=== PATIENT | male | born 1995 | race Caucasian/White ===

== ENCOUNTER 2020-10-26 21:12 | Emergency (ER) | payer OTHER ==
[2020-10-26 21:16] VITALS: BP 138/87; PULSE 111; TEMP 98.7; BMI 28.7
== END 2020-10-26 22:27 | disposition home or self-care (01) ==
LOC: JERFT 21:12
DX: S46.911A Strain of unspecified muscle, fascia and tendon at shoulder and upper arm level, right arm, initial encounter (principal); S50.01XA Contusion of right elbow, initial encounter; S46.912A Strain of unspecified muscle, fascia and tendon at shoulder and upper arm level, left arm, initial encounter
CPT/HCPCS: 73030-TC-RT-FY; 73070-TC-RT-FY; 99284-25

== ENCOUNTER 2022-08-14 22:53 | Emergency (ER) | payer OTHER ==
[~2022-08-14 22:53] MED LIST: LIDOCAINE PATCH REMOVAL MC SCH
[2022-08-14 22:57] VITALS: BP 165/88; PULSE 88; RESP 18; TEMP 97; BMI 30.1
[2022-08-14] MEDS ORDERED: LIDOCAINE 5% TOPICAL PATCH TP ONE (23:21)
[2022-08-14] MEDS ORDERED: ACETAMINOPHEN 500 MG TABLET (FP) PO ONE (23:21)
[2022-08-14] MEDS ORDERED: IBUPROFEN 600 MG TABLET (FP) PO ONE ×2 (23:21→23:49)
[2022-08-14] MEDS ORDERED: LIDOCAINE 5% TOPICAL PATCH ONE (23:48)
[2022-08-14] MEDS ORDERED: ACETAMINOPHEN 325 MG TABLET (FP) ONE (23:49)
== END 2022-08-15 00:13 | disposition home or self-care (01) ==
LOC: JER 22:53
DX: S82.001A Unspecified fracture of right patella, initial encounter for closed fracture (principal); W10.9XXA Fall (on) (from) unspecified stairs and steps, initial encounter
CPT/HCPCS: 73564-TC-RT-FY; 99283-25

== ENCOUNTER 2022-10-15 11:23 | Emergency (ER) | payer OTHER ==
[2022-10-15 11:36] VITALS: BP 127/64; PULSE 74; RESP 18; TEMP 97.7; BMI 28.7
[2022-10-15] MEDS ORDERED: KETOROLAC TROMETHAMINE 30 MG/1 ML VIAL IM ONE (12:04)
[2022-10-15] MEDS ORDERED: KETOROLAC TROMETHAMINE 30 MG/1 ML VIAL ONE (12:05)
== END 2022-10-15 13:00 | disposition home or self-care (01) ==
LOC: JERFT 11:23
PROC: 3E0233Z Introduction of Anti-inflammatory into Muscle, Percutaneous Approach (ICD-10-PCS; principal; 2022-10-15)
DX: S60.042A Contusion of left ring finger without damage to nail, initial encounter (principal); X58.XXXA Exposure to other specified factors, initial encounter; Y99.0 Civilian activity done for income or pay
CPT/HCPCS: 73140-TC-LT-FY; 99284-25

== ENCOUNTER 2023-03-08 19:09 | Emergency (ER) | payer OTHER ==
[2023-03-08 19:13] VITALS: BP 145/90; PULSE 96; RESP 18; TEMP 98; BMI 28.7
[2023-03-08] MEDS ORDERED: IBUPROFEN 600 MG TABLET (FP) PO ONE (19:56)
== END 2023-03-08 20:26 | disposition home or self-care (01) ==
LOC: JERFT 19:09
DX: S80.911A Unspecified superficial injury of right knee, initial encounter (principal); M25.561 Pain in right knee; X58.XXXA Exposure to other specified factors, initial encounter
CPT/HCPCS: 99283-25